=== PATIENT | female | born 1985 | race Caucasian/White ===

== ENCOUNTER → 2025-08-21 11:35 | Outpatient (REF) | payer OTHER, SELFPAY | LOC: HWRAD 11:35 | PROVIDERS: ATTENDING PHYSICIAN Nurse Practitioner | DX: E04.1 Nontoxic single thyroid nodule (principal) | CPT/HCPCS: 76536 ==

== ENCOUNTER → 2025-10-01 10:42 | Outpatient (REF) | payer OTHER, SELFPAY ==
[2025-10-01 10:50] VITALS: BP 116/62; BP_SYST 71
== END ==
LOC: RADI 10:42
PROVIDERS: ATTENDING PHYSICIAN Nurse Practitioner Family
DX: E04.2 Nontoxic multinodular goiter (principal)
CPT/HCPCS: 10005; 10006; 88173

== ENCOUNTER → 2025-10-06 12:05 | Outpatient (REF) | payer OTHER, SELFPAY | LOC: HWWDC 12:05 | PROVIDERS: ATTENDING PHYSICIAN Nurse Practitioner | DX: Z12.31 Encounter for screening mammogram for malignant neoplasm of breast (principal) | CPT/HCPCS: 77063; 77067 ==